=== PATIENT | male | born 1940 ===

== ENCOUNTER 2021-04-05 09:53 | Inpatient (IN) ==
[2021-04-05] MEDS ORDERED: NS 0.9% 1000 ml BAG 1,000 ML IV ONE (10:31)
[2021-04-05 11:45] LABS: Hematocrit 32 % (42-52); Hemoglobin 10.9 g/dL (14.0-18.0); Mean Corpuscular HGB Conc 34 g/dL (31-36); Mean Corpuscular Hemoglobin 30 pg (27-31); Mean Corpuscular Volume 88 fL (80-94); Mean Platelet Volume 7.2 fL (7.4-10.4); Platelet Count 414 10^3/uL (150-450); Red Blood Count 3.67 10^6 /uL (4.18-5.48); Red Cell Distribution Width 14 % (10-15)
[2021-04-05 12:06] LABS: ABS Lymphocytes 1.2 10^3/ul (1.0-4.8); ABS Monocytes 1.2 10^3/ul (0-0.8); ABS Neutrophils 27.5 10^3/ul (1.5-7.7); Eosinophil % 0.1 %
[2021-04-05 12:08] LABS: Albumin/Globulin Ratio 1.7 (1-3); C Reactive Protein 15.41 mg/L (<8.01); Calcium 9.4 mg/dL (8.6-10.3); EGFR African American 52.6 (>60); EGFR Non-African American 43.5 (>60); Globulin 2.3 g/dL (2-4); Magnesium 2.5 mg/dL (1.9-2.7); Total Bilirubin 1.6 mg/dL (0.2-1.0); Total Protein 6.3 g/dL (6.4-8.9)
[2021-04-05 12:21] LABS: Potassium 5.1 mmol/L (3.5-5.0)
[2021-04-05] MEDS ORDERED: Iodixanol (CONTRAST) 320 MG/ML 100 ML SDV IV ONE (12:25)
[2021-04-05 12:34] LABS: Urine Appearance Clear; Urine Bilirubin Negative (Negative); Urine Blood Negative (Negative); Urine Color Amber; Urine Glucose Negative (Negative); Urine Ketones Trace (Negative); Urine Nitrite Negative (Negative); Urine Protein Negative (Negative); Urine Specific Gravity 1.023 (1.002-1.030); Urine Urobilinogen Positive (Negative)
[2021-04-05 12:40] LABS: TSH Ultra Thyroid Stim Horm 6.44 mcIU/mL (0.34-5.60)
[2021-04-05] MEDS ORDERED: Piperacillin/Tazobac ADVAN 3.375 GM in NS 0.9% 100 ml BAG 100 ML IV ONE ×2 (13:10→15:54)
[2021-04-05] MEDS ORDERED: LORazepam 2 mg VIAL 1 ml IV PUSH ONE (14:06)
[2021-04-05] MEDS ORDERED: Lorazepam PYXIS KEY PRN (14:06)
[2021-04-05] MEDS ORDERED: Pantoprazole VIAL 40 MG VIAL IV SCH (15:00)
[2021-04-05 15:50] LABS: Calcium 8.7 mg/dL (8.6-10.3); EGFR African American 61.7 (>60); Potassium 4.9 mmol/L (3.5-5.0)
[2021-04-05] MEDS ORDERED: Zosyn per Pharmacy NOTE FOLLOW UP SCH (16:00)
[2021-04-05] MEDS ORDERED: NS 0.9% 1000 ml BAG 1,000 ML IV SCH (16:15)
[2021-04-05] MEDS ORDERED: Albuterol 2.5mg/3 ml (0.083%) NEB.SOLN INH PRN (16:20)
[2021-04-05] MEDS ORDERED: X ONE IV (17:30)
[2021-04-05] MEDS ORDERED: ZOSYN 3.375 GM IV (17:30)
[2021-04-05] MEDS: ZOSYN 3.375 GM Q8H per EXTENDED INFUSION IV SCH (19:48)
[2021-04-05] MEDS: Pantoprazole VIAL 40 MG VIAL IV SCH (20:22)
[2021-04-05 20:26] LABS: Calcium 8.8 mg/dL (8.6-10.3); EGFR Non-African American 41.3 (>60)
[2021-04-05] MEDS ORDERED: Dextrose 50% Syringe 50 ml 25 GM/50 ML SYRINGE IV PUSH PRN (21:18)
[2021-04-05] MEDS ORDERED: Heparin 5000 UNITS/ML 1 mL VIAL SUBCUT SCH (22:00)
[2021-04-05 22:33] LABS: Direct Bilirubin 0.5 mg/dL (0.03-0.18)
[2021-04-05] MEDS: Bacitracin OINTMENT TUBE TOPICAL SCH (22:47)
[2021-04-06 00:33] LABS: Calcium 8.4 mg/dL (8.6-10.3); Chloride 93 mmol/L (101-111)
[2021-04-06 00:39] LABS: Blood Urea Nitrogen 75 mg/dL (6-24); EGFR African American 41.6 (>60); EGFR Non-African American 34.4 (>60); Glucose 110 mg/dL (70-100)
[2021-04-06 00:47] LABS: CO2 Carbon Dioxide 11 mmol/L (22-32); Sodium 118 mmol/L (135-145)
[2021-04-06 00:55] LABS: Anion Gap 14 mmol/L (2-11)
[2021-04-06 02:32] LABS: Triglycerides 71 mg/dL
[2021-04-06 03:22] LABS: Sodium 119 mmol/L (135-145)
[2021-04-06 03:52] LABS: Blood Urea Nitrogen 78 mg/dL (6-24); Calcium 8.6 mg/dL (8.6-10.3); Chloride 90 mmol/L (101-111); EGFR African American 38.1 (>60); EGFR Non-African American 31.5 (>60); Glucose 118 mg/dL (70-100)
[2021-04-06 03:58] LABS: Anion Gap 15 mmol/L (2-11); CO2 Carbon Dioxide 14 mmol/L (22-32)
[2021-04-06] MEDS: ZOSYN 3.375 GM Q8H per EXTENDED INFUSION IV SCH ×3 (06:10→17:44)
[2021-04-06 07:07] LABS: Free T4 0.96 ng/dL (0.61-1.12)
[2021-04-06 07:11] LABS: Total T3 26 ng/dL (87-178)
[2021-04-06 09:00] LABS: Albumin 3.2 g/dL (3.2-5.2); Albumin/Globulin Ratio 1.6 (1-3); Calcium 8.5 mg/dL (8.6-10.3); EGFR African American 37.5 (>60); Potassium 4.9 mmol/L (3.5-5.0); Total Protein 5.2 g/dL (6.4-8.9)
[2021-04-06 09:03] LABS: Magnesium 2.2 mg/dL (1.9-2.7); Potassium Redraw 4.9 mmol/L (3.5-5.0)
[2021-04-06 09:11] LABS: Hematocrit 28 % (42-52); Hemoglobin 9.3 g/dL (14.0-18.0); Mean Corpuscular HGB Conc 33 g/dL (31-36); Mean Corpuscular Hemoglobin 29 pg (27-31); Mean Corpuscular Volume 88 fL (80-94); Mean Platelet Volume 7.6 fL (7.4-10.4); Platelet Count 329 10^3/uL (150-450); Red Cell Distribution Width 14 % (10-15); White Blood Count 30.3 10^3/uL (3.5-10.8)
[2021-04-06 09:35] LABS: Calcium 8.4 mg/dL (8.6-10.3); EGFR Non-African American 30.6 (>60)
[2021-04-06] MEDS: Pantoprazole VIAL 40 MG VIAL IV SCH ×2 (09:53→20:42)
[2021-04-06] MEDS: Bacitracin OINTMENT TUBE TOPICAL SCH ×3 (09:53→20:42)
[2021-04-06 10:46] LABS: ABS Lymphocytes 0.6 10^3/ul (1.0-4.8); ABS Monocytes 1.1 10^3/ul (0-0.8); ABS Neutrophils 28.5 10^3/ul (1.5-7.7); Lymphocyte % 2.1 %
[2021-04-06 18:24] LABS: CO2 Carbon Dioxide 8 mmol/L (22-32)
[2021-04-06 18:26] LABS: Calcium 7.3 mg/dL (8.6-10.3); Chloride 100 mmol/L (101-111); Sodium 120 mmol/L (135-145)
[2021-04-06 18:27] LABS: Anion Gap 12 mmol/L (2-11)
[2021-04-06] MEDS ORDERED: Ondansetron ODT 4 mg TAB 4 MG TAB SL PRN (22:00)
[2021-04-06 22:47] LABS: Calcium 7.9 mg/dL (8.6-10.3); EGFR African American 38.5 (>60); EGFR Non-African American 31.8 (>60); Potassium 4.8 mmol/L (3.5-5.0)
[2021-04-07] MEDS: ZOSYN 3.375 GM Q8H per EXTENDED INFUSION IV SCH ×3 (02:09→17:30)
[2021-04-07 05:38] LABS: Activated Partial Thrombo Time 30.8 seconds (26.0-38.0); INR 1.21 (0.82-1.09)
[2021-04-07 05:40] LABS: Calcium 8.1 mg/dL (8.6-10.3); Chloride 98 mmol/L (101-111); Sodium 123 mmol/L (135-145)
[2021-04-07 05:45] LABS: Blood Urea Nitrogen 102 mg/dL (6-24); EGFR African American 35.9 (>60); EGFR Non-African American 29.6 (>60); Glucose 99 mg/dL (70-100)
[2021-04-07 05:46] LABS: Anion Gap 12 mmol/L (2-11); CO2 Carbon Dioxide 13 mmol/L (22-32)
[2021-04-07 06:33] LABS: Hematocrit 26 % (42-52); Mean Corpuscular HGB Conc 35 g/dL (31-36); Mean Corpuscular Hemoglobin 30 pg (27-31); Mean Corpuscular Volume 88 fL (80-94); Mean Platelet Volume 7.6 fL (7.4-10.4); Platelet Count 302 10^3/uL (150-450); Red Blood Count 2.98 10^6 /uL (4.18-5.48); Red Cell Distribution Width 14 % (10-15); White Blood Count 22.8 10^3/uL (3.5-10.8)
[2021-04-07] MEDS ORDERED: Buffered Lidocaine 1% SYRIN 1 ml INTRADERM ONE (07:36)
[2021-04-07] MEDS: Bacitracin OINTMENT TUBE TOPICAL SCH ×3 (08:42→21:05)
[2021-04-07] MEDS: Pantoprazole VIAL 40 MG VIAL IV SCH (08:42)
[2021-04-07] MEDS ORDERED: LACTATED RINGERS 1000 ML BAG IV ONE (14:00)
[2021-04-07] MEDS ORDERED: Midazolam 10 mg/10 ml VIAL 1 mg/ml 10 ml VIAL (10 mg) ONE (14:17)
[2021-04-07] MEDS ORDERED: fentaNYL 100 mcg/2 ml 50 MCG/ML VIAL ONE (14:17)
[2021-04-07 14:19] LABS: Calcium 8.3 mg/dL (8.6-10.3); EGFR African American 31.8 (>60); EGFR Non-African American 26.2 (>60); Magnesium 2.3 mg/dL (1.9-2.7); Phosphorus 5.5 mg/dL (2.5-5.0); Potassium 4.9 mmol/L (3.5-5.0)
[2021-04-07] MEDS ORDERED: Pantoprazole VIAL 40 MG VIAL IV ONE (15:29)
[2021-04-07] MEDS: Pantoprazole 80 mg in NS BAG 80 MG/250 ML BAG IV SCH (16:27)
[2021-04-07 22:55] LABS: PCO2 Arterial 33 mmHg (35-45); PO2 Arterial 100 mmHg (80-100)
[2021-04-07] MEDS ORDERED: Adenosine 3 MG/ML 2 ml VIAL (6 mg) ONE (23:21)
[2021-04-07] MEDS ORDERED: Sodium Bicarbonate 8.4% SYR 50 ml SYRINGE ONE (23:22)
[2021-04-07] MEDS ORDERED: Digoxin IV 0.5 MG/2 ML AMP (0.25 MG/ML) ONE (23:29)
[2021-04-07 23:32] LABS: Hematocrit 23 % (42-52); Hemoglobin 7.7 g/dL (14.0-18.0); Mean Corpuscular HGB Conc 33 g/dL (31-36); Mean Corpuscular Hemoglobin 29 pg (27-31); Mean Corpuscular Volume 89 fL (80-94); Mean Platelet Volume 7.4 fL (7.4-10.4); Platelet Count 295 10^3/uL (150-450); Red Blood Count 2.62 10^6 /uL (4.18-5.48); Red Cell Distribution Width 14 % (10-15); White Blood Count 19.2 10^3/uL (3.5-10.8)
[2021-04-07] MEDS ORDERED: Dextrose 50% VIAL 50 ml IV ONE (23:48)
[2021-04-07 23:50] LABS: Calcium 8.2 mg/dL (8.6-10.3); EGFR African American 29.5 (>60); EGFR Non-African American 24.4 (>60); Potassium 4.8 mmol/L (3.5-5.0)
[2021-04-07] MEDS ORDERED: Amiodarone IV 150 mg/3 ml VIAL ONE (23:51)
[2021-04-07] MEDS ORDERED: Amiodarone 360 MG IVPREMIX 0 MG/0 ML BAG IV ONE (23:52)
[2021-04-07] MEDS ORDERED: Amiodarone 150 mg IVPREMIX 0 MG/0 ML BAG IV ONE (23:52)
[2021-04-07] MEDS ORDERED: Sodium Bicarbonate 8.4% VIAL 1 MEQ/ML 50 ml VIAL (50 meq) ONE (23:57)
[2021-04-08] MEDS ORDERED: Lactated Ringers 1000 ml BAG 1,000 ML IV ONE ×3 (00:16→02:26)
[2021-04-08 00:26] LABS: Magnesium 2.4 mg/dL (1.9-2.7)
[2021-04-08 00:30] LABS: ABS Basophils 0.1 10^3/ul (0-0.2); ABS Eosinophils 0.1 10^3/ul (0-0.6); ABS Lymphocytes 0.4 10^3/ul (1.0-4.8); ABS Monocytes 0.8 10^3/ul (0-0.8); ABS Neutrophils 17.9 10^3/ul (1.5-7.7); Eosinophil % 0.4 %
[2021-04-08] MEDS ORDERED: Dextrose 50% Syringe 50 ml 25 GM/50 ML SYRINGE ONE (01:00)
[2021-04-08] MEDS ORDERED: Sodium Bicarbonate 8.4% SYR 10 ML SYRINGE IV ONE (01:00)
[2021-04-08] MEDS: Pantoprazole 80 mg in NS BAG 80 MG/250 ML BAG IV SCH (01:08)
[2021-04-08] MEDS ORDERED: Digoxin IV 0.5 MG/2 ML AMP (0.25 MG/ML) IV SLOW PU ONE ×2 (01:34→01:35)
[2021-04-08] MEDS ORDERED: Lactated Ringers 1000 ml BAG 1,000 ML IV SCH (02:00)
[2021-04-08] MEDS: ZOSYN 3.375 GM Q8H per EXTENDED INFUSION IV SCH (02:57)
[2021-04-08] MEDS ORDERED: Atropine 1% (ORAL/SL) 15 ML BTL SL PRN (03:43)
[2021-04-08] MEDS ORDERED: Morphine ORAL CONCENTRATE 5 MG/0.25 ML ORAL.SYRIN SL PRN (03:43)
[2021-04-08] MEDS ORDERED: LORazepam 2 mg VIAL 1 ml IV PUSH PRN ×2 (03:44→16:58)
[2021-04-08] MEDS ORDERED: Lorazepam PYXIS KEY PRN (03:44)
[2021-04-08] MEDS: Morphine 2 MG/ML SYRINGE IV PRN ×2 (03:53→05:53)
[2021-04-08] MEDS: Bacitracin OINTMENT TUBE TOPICAL SCH (08:19)
[2021-04-08] MEDS: LORazepam 2 mg VIAL 1 ml IV PUSH SCH ×2 (10:09→17:00)
[2021-04-08] MEDS: Morphine 2 MG/ML SYRINGE IV SCH ×2 (10:09→16:08)
[2021-04-08 12:24] VITALS: BP 76/21
[2021-04-10 23:28] LABS: Albumin 2.8 g/dL (3.4-4.7); Albumin/Globulin Ratio 1.05; Gamma Globulin 1.2 g/dL (0.6-1.6); Total Protein(PEP) 5.5 g/dL (6.3 - 7.9)
== END 2021-04-08 18:36 | disposition expired | DRG 871 ==
LOC: ED 09:53 → MEDTELE 18:20 → ICU 04-06 02:29 → MED 04-08 12:12
PROVIDERS: ADMIT Internal Medicine; ATTEND Internal Medicine